=== PATIENT | male | born 1950 | race Caucasian/White ===

== ENCOUNTER 2016-09-16 11:03 | Emergency (ER) | payer MEDICARE, OTHER ==
[2016-09-16 11:15] VITALS: BP 147/83
[2016-09-16] MEDS: MECLIZINE 12.5 MG TABLET PO STA (12:47)
[2016-09-16] MEDS ORDERED: MECLIZINE 12.5 MG TABLET PO ONE (12:49)
--- NOTE | 2016-09-16 12:52 | ED Physician Documentation ---
History of Present Illness - Stated complaint Stated Complaint: DIZZY - Chief complaint Chief Complaint: Neuro - Additonal information Additional information: hx from pt 66 male hx BPV txed with epleys awoke 3 AM and was fine awoke 6 AM and had vertigo matt when looking left no focal numbness no focal weakness no vision speech hearing abn no recent head trauma no recent URI Review of Systems Constitutional: denies: Fever, Chills Ears: denies: Ear pain Cardiac: denies: Chest pain / pressure Respiratory: denies: Dyspnea GI: denies: Abdominal Pain Neurologic: reports: Other (dizzy/vertigo). denies: Focal weakness, Numbness, Headache, Head injury Endocrine: denies: Easy bruising / bleeding Immunocompromised: denies: Immunocompromised PD PAST MEDICAL HISTORY - Past Medical History Past Medical History: Yes Cardiovascular: Hypertension, High cholesterol - Past Surgical History Past Surgical History: No - Present Medications Home Medications: Ambulatory Orders Medication Instructions Recorded Confirmed Lisinopril 10 mg PO DAILY 09/16/16 09/16/16 Meclizine [Antivert] 25 mg PO Q6H PRN #20 tablet 09/16/16 Ondansetron Odt [Zofran] 4 mg TL Q6H PRN #10 tablet 09/16/16 - Allergies Allergies/Adverse Reactions: Allergies Allergy/AdvReac Type Severity Reaction Status Date / Time No Known Drug Allergies Allergy Verified 09/16/16 11:11 - Social History Does the pt smoke?: Yes Smoking Status: Current every day smoker Does the pt drink ETOH?: Yes Does the pt have substance abuse?: No - Immunizations Immunizations are current?: Yes - POLST Patient has POLST: No PD ED PE NORMAL - Vitals Vital signs reviewed: Yes - HEENT HEENT: PERRL, EOMI (nystagmus looking left) - Neck Neck: Supple, no meningeal sign - Cardiac Cardiac: RRR - Respiratory Respiratory: No respiratory distress - Abdomen Abdomen: Soft, Non tender - Derm Derm: Normal color - Neuro Neuro: Alert and oriented X 3, canteen attendant 2-12 intact, No motor deficit, No sensory deficit, Normal speech - Free text exam Free text exam: NIHSS zero Results - Vitals Vitals: Vital Signs - 24 hr 09/16/16 11:07 Temperature 36.8 C Heart Rate 57 L Respiratory 16 Rate Blood Pressure 147/83 H O2 Saturation 98 Oxygen O2 Source Room air PD MEDICAL DECISION MAKING - ED course ED course: based on hx and exam and pt having had same sx before this seems to be BPV and do not think MRI is neded at this time unless sx fail to resolve as anticipated - 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 CVA (feel very unlikey) pt is well out of the 4.5 hr window for intervention will tx symptomatically and defer imaging for now d/w pt and pt improved though not completely asymtpoamtic with meclizine and epleys - feels ready to go and continue same tx at home Departure - Departure Disposition: Home, Self Care Clinical Impression: Vertigo Condition: Good Instructions: ED BPV Vertigo Prescriptions: Meclizine [Antivert] 25 mg PO Q6H PRN #20 tablet PRN Reason: Dizziness Ondansetron Odt [Zofran] 4 mg TL Q6H PRN #10 tablet PRN Reason: Nausea / Vomiting Comments: Continue to the do the Cassidy's maneuver at home Meclizine every 6 hr as needed for dizziness, zofran every 6 hr as needed for nausea or vomiting Return to the ER of worse or any new neurologic symptoms develop No driving/ladders etc until the dizziness is completely resolved and you are not needing medication any more Please follow up with your PMD to get your blood pressure rechecked when you are feeling better Forms: Activity restrictions
== END 2016-09-16 14:02 | disposition home or self-care (01) ==
LOC: ED 11:03
DX: R42 Dizziness and giddiness (principal); I10 Essential (primary) hypertension; E78.00 Pure hypercholesterolemia, unspecified; F17.200 Nicotine dependence, unspecified, uncomplicated
CPT/HCPCS: 99283; A9270